=== PATIENT | male | born 1955 | race Caucasian/White ===

== ENCOUNTER → 2023-06-23 09:22 | Outpatient (REF) | payer MEDICARE, OTHER, SELFPAY ==
[2023-06-23 12:55] LABS: Microalbumin, Random Urine <0.6 mg/dl (0.6-1.7)
[2023-06-23 13:05] LABS: ALT (SGPT) 23 U/L (0-50); AST (SGOT) 23 U/L (17-59); Albumin 4.2 g/dl (3.5-5.0); Alkaline Phosphatase 69 U/L (38-126); Blood Urea Nitrogen 17 mg/dl (9-20); Calcium 9.3 mg/dl (8.4-10.2); Carbon Dioxide 27 mmol/L (22-30); Chloride 103 mmol/L (98-107); Glucose 165 mg/dl (70-99); HDL Cholesterol 44 mg/dl; LDL Cholesterol, Calculated 69 mg/dl; Potassium 4.5 mmol/L (3.5-5.1); Sodium 137 mmol/L (135-145); Total Bilirubin 0.6 mg/dl (0.2-1.3); Total Cholesterol 146 mg/dl (50-199); Total Protein 6.9 g/dl (6.3-8.2); Triglyceride 165 mg/dl (10-149); Very Low Density Lipoprotein 33 mg/dl (0-30); eGFR > 60.00
== END ==
LOC: HWLAB 09:22
PROVIDERS: ATTENDING PHYSICIAN Internal Medicine Hematology & Oncology; FAMILY PHYSICIAN Internal Medicine
DX: C15.5 Malignant neoplasm of lower third of esophagus (principal); C79.31 Secondary malignant neoplasm of brain; E11.9 Type 2 diabetes mellitus without complications; E78.5 Hyperlipidemia, unspecified
CPT/HCPCS: 36415; 80053; 80061; 82043; 82570; 83036

== ENCOUNTER → 2023-08-12 11:04 | Outpatient (REF) | payer MEDICARE, OTHER, SELFPAY | LOC: DHCBS HW 11:04 | PROVIDERS: ATTENDING PHYSICIAN Internal Medicine Cardiovascular Disease; FAMILY PHYSICIAN Internal Medicine | DX: R06.09 Other forms of dyspnea (principal); I44.7 Left bundle-branch block, unspecified; I25.10 Atherosclerotic heart disease of native coronary artery without angina pectoris | CPT/HCPCS: 93306 ==

== ENCOUNTER → 2023-08-19 14:23 | Outpatient (REF) | payer MEDICARE, OTHER, SELFPAY ==
--- NOTE | 2023-08-19 15:14 | CARDSERVLU ---
Echocardiogram with Lumason completed after protocol screening completed. Allergies verified.
Patent IV site: _Rt AC_
IV site flushed with 0.9% NaCl pre and post administration.
Diluted bolus method utilized to enhance visualization of ventricular randle.
Total volume given: __3.0__ mL
Patient tolerated all procedures well without complications.
#22 chip placed Left AC. Lumason given. INT removed. dsg applied and pressure held. No bleeding noted.
== END ==
LOC: RCS 14:23
PROVIDERS: ATTENDING PHYSICIAN Internal Medicine Cardiovascular Disease; FAMILY PHYSICIAN Internal Medicine
DX: I10 Essential (primary) hypertension (principal); R00.0 Tachycardia, unspecified; R93.1 Abnormal findings on diagnostic imaging of heart and coronary circulation
CPT/HCPCS: 93308; Q9950

== ENCOUNTER → 2023-08-29 07:26 | Outpatient (REF) | payer MEDICARE, OTHER, SELFPAY | LOC: DHCBC/DCA 07:26 | PROVIDERS: ATTENDING PHYSICIAN Internal Medicine Cardiovascular Disease; FAMILY PHYSICIAN Internal Medicine | DX: R06.09 Other forms of dyspnea (principal); I44.7 Left bundle-branch block, unspecified; I25.10 Atherosclerotic heart disease of native coronary artery without angina pectoris | CPT/HCPCS: 78452; 93017; A9500; J2785 ==

== ENCOUNTER → 2023-09-08 11:45 | Outpatient (REF) | payer MEDICARE, OTHER, SELFPAY ==
[2023-09-09 08:59] LABS: Glycohemoglobin (HgbA1c) 7.5 % (4.0-5.6)
== END ==
LOC: HWLAB 11:45
PROVIDERS: ATTENDING PHYSICIAN Internal Medicine
DX: E11.65 Type 2 diabetes mellitus with hyperglycemia (principal)
CPT/HCPCS: 36415; 83036

== ENCOUNTER → 2023-11-22 10:43 | Outpatient (REF) | payer MEDICARE, OTHER, SELFPAY | LOC: HWLAB 10:43 | PROVIDERS: ATTENDING PHYSICIAN Neurological Surgery; FAMILY PHYSICIAN Internal Medicine | DX: C79.31 Secondary malignant neoplasm of brain (principal) | CPT/HCPCS: 36415; 82565 ==

== ENCOUNTER → 2024-01-17 09:58 | Outpatient (REF) | payer MEDICARE, OTHER, SELFPAY | LOC: RAD 09:58 | PROVIDERS: ATTENDING PHYSICIAN Internal Medicine Hematology & Oncology; FAMILY PHYSICIAN Internal Medicine | DX: C15.5 Malignant neoplasm of lower third of esophagus (principal); C79.31 Secondary malignant neoplasm of brain | CPT/HCPCS: 71260; 74177; Q9967 ==

== ENCOUNTER → 2024-04-04 09:44 | Outpatient (REF) | payer MEDICARE, OTHER, SELFPAY ==
[2024-04-04 11:31] LABS: % Basophils 1.1 % (0-2); % Eosinophils 2.3 % (0-6); % Immature Granulocytes 0.8 % (0-0.5); % Lymphocytes 22.1 % (20.5-51.1); % Monocytes 5.7 % (1.7-9.3); Absolute Basophils 0.1 10^3/uL (0-0.2); Absolute Eosinophils 0.2 10^3/uL (0-0.7); Absolute Immature Granulocytes 0.1 10^3/uL (0-0.05); Absolute Lymphocytes 1.5 10^3/uL (1.2-3.4); Absolute Monocytes 0.4 10^3/uL (0.1-0.6); Absolute Neutrophils 4.5 10^3/uL (1.4-6.5); Hemoglobin 13.8 g/dL (13.0-18.0); Mean Corp Hgb Conc. 30.7 g/dL (33.0-37.0); Mean Corpuscular Hgb 25.7 pg (27.0-31.0); Mean Platelet Volume 9.6 fL (7.4-10.4); Nucleated Red Blood Cells % 0 % (-); Platelet Count 270 10^3/uL (130-400); Red Blood Cell Count 5.36 10^6/uL (4.70-6.10); Red Cell Dist. Width 15.4 % (11.5-14.5); White Blood Cell Count 6.6 10^3/uL (4.8-10.8)
[2024-04-04 13:13] LABS: ALT (SGPT) 18 U/L (0-50); AST (SGOT) 17 U/L (17-59); Albumin 4.5 g/dl (3.5-5.0); Alkaline Phosphatase 45 U/L (38-126); Blood Urea Nitrogen 18 mg/dl (9-20); Calcium 9.4 mg/dl (8.4-10.2); Carbon Dioxide 27 mmol/L (22-30); Chloride 99 mmol/L (98-107); Glucose 119 mg/dl (70-99); HDL Cholesterol 41 mg/dl; LDL Cholesterol, Calculated 61 mg/dl; Potassium 4.8 mmol/L (3.5-5.1); Sodium 141 mmol/L (135-145); Total Bilirubin 0.5 mg/dl (0.2-1.3); Total Cholesterol 134 mg/dl (50-199); Triglyceride 163 mg/dl (10-149); Very Low Density Lipoprotein 32 mg/dl (0-30); eGFR > 60.00
[2024-04-04 13:25] LABS: Microalbumin, Random Urine 0.8 mg/dl (0.6-1.7); Microalbumin/creatinine Ratio 6.3 mg/g
[2024-04-04 13:40] LABS: CEA 1.18 ng/ml
== END ==
LOC: HWLAB 09:44
PROVIDERS: ATTENDING PHYSICIAN Internal Medicine Hematology & Oncology; FAMILY PHYSICIAN Internal Medicine
DX: C15.5 Malignant neoplasm of lower third of esophagus (principal); C79.31 Secondary malignant neoplasm of brain; E11.9 Type 2 diabetes mellitus without complications; E78.5 Hyperlipidemia, unspecified
CPT/HCPCS: 36415; 80053; 80061; 82043; 82378; 82570; 83036; 85025

== ENCOUNTER 2024-04-18 18:23 | Inpatient (IN) | payer MEDICARE, OTHER, SELFPAY ==
[2024-04-18] VITALS (9 sets, daily range): BP systolic 98–138; BP diastolic 71–87; BMI 30.5; BMI 28.3
--- NOTE | 2024-04-18 13:21 | ED.GENMED ---
History of Present Illness
General
Chief Complaint: Cardiac Symptoms
Source: patient
Exam Limitations: none
Time Seen by Provider: 04/18/24 13:19
History of Present Illness
History of Present Illness:
69-year-old male presents via EMS from family doctor's office with complaints of fatigue and cough and shortness of breath of the past 3 days. He was noticed to be hypoxic and tachycardic at the office and was sent here. Patient denies chest pain.
Denies former smoker treated for hypertension. Fever chills or sweats or recent travel. He denies any leg swelling or calf pain. He is a yht-jzmoygf-ayusrrixw diabetic. No abdominal pain nausea or vomiting. No other complaints
Past History
Past History
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 Tubular adenoma of the colon), GERD, HTN, Hypercholesterolemia, NIDDM and Other (Esophageal cancer metastasis to the brain, Colonic polyposis, neuropathic pain)
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
(Esophagectomy,Gastrostomy tube)
Social History
Tobacco: Non-smoker
Alcohol: None
Drug: None
Personal:
Living: with family
Employment: Retired
Family History
Family History: Other (Reviewed and Noncontributory)
Phy Exam
Physical Exam
Physical Exam:
General: Well-appearing male with increased work of breathing
HEENT: Normocephalic atraumatic neck is supple
Heart: Tachycardic but regular
Lungs: Slightly diminished bilaterally
Abdomen soft nontender nondistended no guarding or rebound
Extremities: No cyanosis or edema
Course
Orders/Labs/Results
Orders:
Orders
04/18/24 13:12
Electrocardiogram (*1) Urgent
Reason for Study: Fatigue / Weakness
EKG- Treatment ONCE
04/18/24 13:19
CT Chest Pe Study Urgent
Comment:
Reason For Exam: hypoxia, tachycardia
Diphenhydramine [Benadryl] 50 mg IV NOW STA
Hydrocortisone Sod Succinate [Solu-Cortef] 200 mg IV NOW STA
04/18/24 13:27
Basic Metabolic Panel Urgent
COVID-19 Antigen Urgent
Source: Nasal Swab
Complete Blood Count/With Diff Urgent
NT-proBNP Urgent
Troponin I Urgent
Influenza A+B Rapid Molecular Urgent
CANDI Source: Nasal Swab
Specimen Description:
04/18/24 16:37
CefTRIAXone [Rocephin] 1,000 mg IV NOW STA
04/18/24 17:00
Azithromycin 500 mg/250 ml [Zithromax Infusion] 500 mg in 250 ml IV Q24H
Abnormal Lab Results
04/18/24
13:27
Hgb 12.8 L g/dL
(13.0-18.0)
MCH 25.5 L pg
(27.0-31.0)
MCHC 30.7 L g/dL
(33.0-37.0)
RDW 15.3 H %
(11.5-14.5)
Abs Immat Gran (auto) 0.1 H 10^3/uL
(0-0.05)
Absolute Neuts (auto) 8.3 H 10^3/uL
(1.4-6.5)
Absolute Lymphs (auto) 1.1 L 10^3/uL
(1.2-3.4)
Absolute Monos (auto) 1.1 H 10^3/uL
(0.1-0.6)
Immature Gran % 0.6 H %
(0-0.5)
Neutrophils % 77.9 H %
(42.2-75.2)
Lymphocytes % 10.5 L %
(20.5-51.1)
Monocytes % 10.0 H %
(1.7-9.3)
BUN 24 H mg/dl
(9-20)
Glucose 139 H mg/dl
(70-99)
04/18/24 13:27
04/18/24 13:27
Vital Signs
Initial and Last Documented VS:
Initial Vital Signs
Temp Pulse Resp BP Pulse Ox
99.4 F 119 16 98/73 92
04/18/24 13:13 04/18/24 13:13 04/18/24 13:13 04/18/24 13:13 04/18/24 13:13
Last Documented Vital Signs
Temp Pulse Resp BP Pulse Ox
99.4 F 100 16 119/78 95
04/18/24 13:13 04/18/24 16:00 04/18/24 16:04 04/18/24 16:00 04/18/24 16:00
MDM/Problems Addressed
Differential Diagnosis Includes:
Shortness of breath fatigue and weakness. Patient is hypoxic here at 87% on room air and tachycardic. EKG shows a left bundle branch block which is not new. Differential could include PE versus pneumonia versus ACS versus viral illness
Nasal cannula oxygen started. Will check labs including troponin BNP. CT of chest ordered. Chart lists iodinated contrast material allergy. Will pretreat with Solu-Cortef and Benadryl.
Review of chart shows prior history of left bundle branch block
*Critical Care Note
Total Time (30-74mins, 75-104mins- exclusive of procedures): Not Applicable
Update Note
Update Note:
CT chest demonstrates a right middle lobe pneumonia but no evidence of pulmonary embolism. Patient is tachycardic here with some hypoxia. He is on nasal oxygen. Will admit patient to hospital for pneumonia. Rocephin and Zithromax ordered
ED Attending Note
-
Portions of this chart may have been created with voice recognition software.� Occasional wrong word or��sound alike� substitutions may have occurred due to the inherent limitations of voice recognition software.
Discharge Plan
Departure
Patient Disposition: Admit
Date of Disposition: 04/18/24
Time of Disposition: 16:43
Admit to: Telemetry
Presentation/result/management discussed w/ accepting MD/DO: Hospitalist
Discharge Problem:
Pneumonia
Prescriptions:
No Action
omeprazole 40 MG capsule,delayed release(DR/EC)
40 mg PO BID
duloxetine 60 MG capsule,delayed release(DR/EC)
60 mg PO HS
amlodipine 5 MG tablet
5 mg PO DAILY
atorvastatin 20 mg Tablet
20 mg PO HS
metformin 500 mg tablet
1,000 mg PO BID
Centrum Men 8 mg iron- 200 mcg-600 mcg Tablet
1 tab PO DAILY
aspirin 81 mg Tablet,Chewable
81 mg PO DAILY Qty: 30 0RF
levetiracetam 500 mg Tablet
1,000 mg PO BID Qty: 120 0RF
clopidogrel 75 mg Tablet
75 mg PO DAILY Qty: 20 0RF
amoxicillin-pot clavulanate 875-125 mg tablet
1 tab PO BID Qty: 14 0RF
azithromycin 250 mg tablet
250 mg PO DAILY 4 Days Qty: 4 0RF
Referrals:
Sachi Moses MD [Family Provider] -
Interventions
Interventions:
*Risk Screen - Suicide Last Done: 04/18/24 13:19
*General Assessment Last Done: 04/18/24 13:18
*Neglect/Abuse Screening Last Done: 04/18/24 13:19
*ED COVID-19 Vaccine History Last Done: 04/18/24 13:18
ED- Pulmonary Assessment Last Done: 04/18/24 13:19
ED- Cardiac Assessment Last Done: 04/18/24 13:19
Discharge Date and Time
Print Language: KYRGYZ
[2024-04-18] MEDS: SOLU-CORTEF 200 MG IV (13:29)
[2024-04-18] MEDS: BENADRYL 50 MG IV (13:29)
[2024-04-18 13:42] LABS: % Basophils 0.5 % (0-2); % Eosinophils 0.5 % (0-6); % Immature Granulocytes 0.6 % (0-0.5); % Lymphocytes 10.5 % (20.5-51.1); % Neutrophils 77.9 % (42.2-75.2); Absolute Basophils 0.1 10^3/uL (0-0.2); Absolute Eosinophils 0.1 10^3/uL (0-0.7); Absolute Immature Granulocytes 0.1 10^3/uL (0-0.05); Absolute Lymphocytes 1.1 10^3/uL (1.2-3.4); Absolute Monocytes 1.1 10^3/uL (0.1-0.6); Absolute Neutrophils 8.3 10^3/uL (1.4-6.5); Hematocrit 41.7 % (39.0-52.0); Hemoglobin 12.8 g/dL (13.0-18.0); Mean Corp Hgb Conc. 30.7 g/dL (33.0-37.0); Mean Corpuscular Hgb 25.5 pg (27.0-31.0); Mean Corpuscular Volume 83.2 fL (80.0-94.0); Nucleated Red Blood Cells % 0 % (-); Platelet Count 270 10^3/uL (130-400); Red Blood Cell Count 5.01 10^6/uL (4.70-6.10); Red Cell Dist. Width 15.3 % (11.5-14.5); White Blood Cell Count 10.7 10^3/uL (4.8-10.8)
[2024-04-18 14:03] LABS: COVID-19 Antigen Negative (Negative)
[2024-04-18 14:05] LABS: Blood Urea Nitrogen 24 mg/dl (9-20); Calcium 9.8 mg/dl (8.4-10.2); Carbon Dioxide 23 mmol/L (22-30); Chloride 101 mmol/L (98-107); Estimated Creatinine Clearance 96 ml/min; Glucose 139 mg/dl (70-99); Sodium 139 mmol/L (135-145); eGFR > 60.00
[2024-04-18 14:12] LABS: NT-proBNP 245 pg/ml; Troponin I < 0.012 ng/ml
[2024-04-18] MEDS: ROCEPHIN 1000 MG IV (16:48)
[2024-04-18] MEDS: ZITHROMAX INFUSION 250 IV (16:49)
--- NOTE | 2024-04-18 17:14 | HPS.HSE ---
Family Physician
-
Family Physician: Sachi Moses
Chief Complaint
-
weakness and cough
History of Present Illness
Mr. Fox Syed is a 69 yo man with hx esophageal cancer with left frontal lobe metastasis status post esophagectomy 2015 and craniotomy 2018, admission for dysarthria 2021 treated for TIA and started on AED, DM, essential HTN, HLD presents to the
ER with fatigue, cough and shortness of breath. Patient was sent from PCP office, noted to be hypoxic and tachycardic.
Patient is slow to respond on my interview but AAO x 3 (had just received Benadryl for contrast allergY). He states symptoms started with fatigue one week ago. He then had increased cough and shortness of breath over past several days. No chest
pain. He is currently diaphoretic, did not check to see if had fever at home. At clinic he was noted to have SBP in 80's per .
He denies nausea/vomiting. He has been eating and drinking OK but states doesn't drink much. No current abdominal pain. No LE swelling. No rash.
Medical History
Past Medical History
Past Medical History: Reports Other
Additional Past Medical History:
Hypertension
DM-II
Esophageal Cancer with L Frontal Lobe Metastasis
Depression
admission for dysarthria 2021 treated for TIA and started on AED
Past Surgical History: Reports Other
Additional Past Surgical History:
G-tube
Esophagectomy 2016
Brain tumor resection 2018
Social History
Tobacco: Former Smoker (Quit 2015. Approx 40 pack years total use.)
Alcohol: None
Drug: None
Personal:
Living: With Family
Employment: Employed
Family History
Family History: Not pertinent
Allergies / Home Medications
Allergies reflects when Allergies were last updated in [employer].
Home Medications with original date entered in [employer]
Allergy/Medication List:
Allergies
Allergy/AdvReac Type Severity Reaction Status Date / Time
Iodinated Contrast Media Allergy Hives Verified 04/21/22 23:20
Home Medications
omeprazole 40 mg capsule,delayed release 40 mg PO BID Gastrointestinal issue 09/24/16
duloxetine 60 mg capsule,delayed release 60 mg PO QPM Depression 09/09/18
amlodipine 5 mg tablet 5 mg PO DAILY Blood pressure 05/16/19
atorvastatin 20 mg tablet 20 mg PO QPM High cholesterol 12/16/21
metformin 500 mg tablet 1,000 mg PO BID Diabetes 12/16/21
multivit,Ca,min-iron 8 mg-folic acid 200 mcg-lycopene 600 mcg tablet (Centrum Men) 1 tab PO DAILY Supplement 12/16/21
aspirin 81 mg chewable tablet 81 mg PO DAILY #30 tabs 12/17/21
empagliflozin 25 mg tablet (Jardiance) 25 mg PO DAILY 04/18/24
levetiracetam 500 mg tablet 750 mg PO BID 04/18/24
metoprolol succinate 25 mg tablet,extended release 24 hr 25 mg PO QPM 04/18/24
Review of Systems
-
History Source: Patient
A 12 point ROS was completed and negative except as noted: Yes
Physical Exam
Vital Signs
Vital Signs
Temp Pulse Resp BP Pulse Ox
99.4 F 100 16 127/87 97
04/18/24 13:13 04/18/24 17:00 04/18/24 17:04 04/18/24 17:00 04/18/24 17:00
Physical Exam
General: Other (appears diaphoretic and slow to respond to questions but awake/alert )
HEENT: PERRLA
Respiratory: Rhonchi; No Wheezes
Cardiac: S1/S2 and Regular Rhythm
GI: Soft and Non Tender
Musculoskeletal: No Edema
Skin: Warm and Dry; No Rash
Neuro: AO x 3
Psych: Calm
Laboratory Results
-
04/18/24 13:27
04/18/24 13:27
Laboratory Results
Total Bilirubin Cancelled 04/18/24 13:27
AST Cancelled 04/18/24 13:27
ALT Cancelled 04/18/24 13:27
Alkaline Phosphatase Cancelled 04/18/24 13:27
Troponin I < 0.012 ng/ml 04/18/24 13:27
Data Reviewed
-
Diagnostic Radiology: Report Reviewed by me
Lab Data: Labs Reviewed by me
Impression/Plan
-
Mr. Fox Syed is a 69 yo man with hx esophageal cancer with left frontal lobe metastasis status post esophagectomy and craniotomy 2018, admission for dysarthria 2021 treated for TIA and started on AED, DM, essential HTN, HLD presents to the ER
with fatigue, cough and shortness of breath. Patient was sent from PCP office, noted to be hypoxic and tachycardic.
Triage VS: T 99.4, P 119, RR 16, BP 98/73, SpO2 92%
LABS: WBC 10.7, Hg 12.8, PLT 270, Na 139, Cl 101, BUN 24, Cr 0.9, Glucose 139, Trop < 0.012, BNP 245
covid negative, Influenza negative
Chest CT:
IMPRESSION: Examination is negative for pulmonary embolism.
Right upper lobe pneumonia, new since prior examination of January 17, 2024.
See above narrative for additional findings.
There is a slightly enlarged paratracheal lymph node seen on image 30 of series 401, short axis diameter of 11 mm, slightly larger than on previous examination. This is nonspecific and could be reactive or neoplastic. There are also slightly
enlarged lymph nodes adjacent to the trachea and grace, slightly larger than previous examination but still nonspecific.
MAR: IV Ceftriaxone, Azithromycin
Community Acquired Pneumonia
Hypoxic Respiratory Insufficiency
-admit to telemetry
-O2 support as needed
-continue IV Ceftriaxone/Azithromycin
-1L bolus now and running IVF
Hx Esophageal cancer with left frontal lobe metastasis
status post esophagectomy and craniotomy 2019, s/p radiation
Essential HTN
-current SBP 120's, was 80's in office per
-hold amlodipine for now and monitor BP
-LACE PINNER metoprolol with hold parameters
DM II
-hold LACE PINNER Metformin, Jardiance
-ISS
Hx TIA
-LACE PINNER aspirin, statin
Depression
-LACE PINNER Duloxetine
DVT PPx Lovenox subQ
FULL CODE
[2024-04-18] MEDS: NSS 1000 IV ×2 (17:44→21:01)
[2024-04-18 18:09] LABS: ALT (SGPT) 33 U/L (0-50); AST (SGOT) 43 U/L (17-59); Albumin 3.8 g/dl (3.5-5.0); Alkaline Phosphatase 52 U/L (38-126); Direct Bilirubin 0.3 mg/dl (0.0-0.4); Magnesium 2.1 mg/dl (1.6-2.3); Potassium 4.6 mmol/L (3.5-5.1); Total Bilirubin 0.6 mg/dl (0.2-1.3); Total Protein 6.5 g/dl (6.3-8.2)
[2024-04-18 20:09] LABS: Glucose - Point of Care 130 mg/dl (70-99)
--- NOTE | 2024-04-18 20:30 | TRANSFER ---
pt arrived from ED via stretcher accompanied by ED staff. pt was a pullover from stretcher to bed. pt AAOx3. diaphoretic upon arrival, but VSS. blood sugar on arrival 130. satting at 96% on 4L. bed alarm placed. pt oriented to room, call drew within
reach. POC ongoing, will continue to monitor.
[2024-04-18] MEDS: KEPPRA 750 MG PO (20:57)
[2024-04-18] MEDS: NOVOLOG FLEXPEN-LOW RESISTANCE SC (20:57)
[2024-04-18] MEDS: CYMBALTA DELAYED RELEASE 60 MG PO (20:59)
[2024-04-18] MEDS: MUCINEX 600 MG PO (20:59)
[2024-04-18] MEDS: TOPROL XL 25 MG PO (20:59)
[2024-04-18] MEDS: PROTONIX 40 MG PO (20:59)
[2024-04-18] MEDS: LIPITOR 20 MG PO (21:00)
[2024-04-18] MEDS: LOVENOX 40 MG SC (21:00)
[2024-04-19] VITALS (8 sets, daily range): BP systolic 109–166; BP diastolic 64–75; PULSE 104; O2SAT 90
--- NOTE | 2024-04-19 06:36 | DOWNTIME ---
There was a [employer] Downtime on 04/19/2024 from 0200 to 04/19/2024 at 0325 . Downtime documentation of patient's care, including medication administrations, has been reconciled in the electronic record per guidelines. Refer to the
patient's paper chart under the miscellaneous tab to see printed paper medication records and downtime forms.
[2024-04-19 07:27] LABS: % Basophils 0.5 % (0-2); % Eosinophils 0.4 % (0-6); % Immature Granulocytes 0.8 % (0-0.5); % Lymphocytes 17.8 % (20.5-51.1); % Monocytes 6.8 % (1.7-9.3); % Neutrophils 73.7 % (42.2-75.2); Absolute Immature Granulocytes 0.1 10^3/uL (0-0.05); Absolute Lymphocytes 1.4 10^3/uL (1.2-3.4); Absolute Monocytes 0.5 10^3/uL (0.1-0.6); Absolute Neutrophils 5.9 10^3/uL (1.4-6.5); Hematocrit 42.2 % (39.0-52.0); Hemoglobin 12.5 g/dL (13.0-18.0); Mean Corp Hgb Conc. 29.6 g/dL (33.0-37.0); Mean Corpuscular Hgb 25.2 pg (27.0-31.0); Mean Corpuscular Volume 84.9 fL (80.0-94.0); Mean Platelet Volume 9.8 fL (7.4-10.4); Nucleated Red Blood Cells % 0 % (-); Platelet Count 270 10^3/uL (130-400); Red Blood Cell Count 4.97 10^6/uL (4.70-6.10); Red Cell Dist. Width 15.2 % (11.5-14.5)
[2024-04-19 07:40] LABS: Blood Urea Nitrogen 25 mg/dl (9-20); Calcium 9.3 mg/dl (8.4-10.2); Carbon Dioxide 26 mmol/L (22-30); Chloride 104 mmol/L (98-107); Estimated Creatinine Clearance 101 ml/min; Glucose 90 mg/dl (70-99); Magnesium 2.2 mg/dl (1.6-2.3); Sodium 142 mmol/L (135-145); eGFR > 60.00
[2024-04-19 08:32] LABS: Glucose - Point of Care 95 mg/dl (70-99)
[2024-04-19] MEDS: NOVOLOG FLEXPEN-LOW RESISTANCE SC (08:45)
[2024-04-19] MEDS: MUCINEX 600 MG PO (08:47)
[2024-04-19] MEDS: KEPPRA 750 MG PO ×2 (08:47→21:21)
[2024-04-19] MEDS: PROTONIX 40 MG PO ×2 (08:47→21:22)
[2024-04-19] MEDS: LOW STRENGTH ASPIRIN 81 MG PO (08:47)
[2024-04-19] MEDS: FLUSH (NSS) 1 FLUSH IV (08:48)
--- NOTE | 2024-04-19 11:15 | W.PN.HOSP.TC ---
Today's Communication/Plan
-
see outlined plan
wean O2
Assessment / Plan
Assessment / Plan
Assessment:
Community Acquired Pneumonia
Hypoxic Respiratory Insufficiency on 4L NC on admission
- s/p IVF
- continue IV Rocephin, Azithro, day 2
- wean O2 as able
- mucolytics, IS, Acapella
Hx Esophageal cancer with left frontal lobe metastasis
status post esophagectomy and craniotomy 2019, s/p radiation
- on Keppra for AED for prophylaxis
Essential HTN
-current SBP 120's, was 80's in office per
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
DM II
-hold [employer] Metformin
-resume Jardiance
-ISS
Hx TIA
-[employer] aspirin, statin
Depression
-[employer] Duloxetine
DVT PPx Lovenox subQ
FULL CODE
Anticipated Discharge: Within 24 hours
Subjective/Interval History
-
Date of Service: April 19, 2024
weaned to 2L from 4L
brown sputum production
denies SOB or chest pain
no fevers
Objective Data
-
Labs:
Laboratory Results
04/19/24
06:26
WBC 8.0
Hgb 12.5 L
Hct 42.2
Plt Count 270
Sodium 142
Potassium 5.0
Chloride 104
Carbon Dioxide 26
BUN 25 H
Creatinine 0.8
Glucose 90
Calcium 9.3
Vital Signs:
Vital Signs
Temp Pulse Resp BP Pulse Ox
97.6 F 82 20 166/75 98
04/19/24 08:07 04/19/24 08:07 04/19/24 08:07 04/19/24 08:07 04/19/24 08:07
I&O
04/18/24 04/19/24 04/20/24
06:59 06:59 06:59
Intake Total 1040 / 1040
Output Total 350 / 350
Balance 690 / 690
Physical Exam
-
General: No Apparent Distress
HEENT: Normocephalic and Atraumatic
Respiratory: Rhonchi (RUL) and Decreased Breath Sounds
Cardiac: Regular Rhythm and S1/S2
GI: Soft
Genito-urinary: No Costovertebral Tender
Neuro: AO x 3
Psych: Calm
Data Reviewed
-
Total Time Spent with Patient (in minutes): 44
Labs: Labs Reviewed by me
[2024-04-19 12:24] LABS: Glucose - Point of Care 161 mg/dl (70-99)
[2024-04-19] MEDS: NORVASC 5 MG PO (12:50)
[2024-04-19] MEDS: FARXIGA 10 MG PO (12:50)
[2024-04-19] MEDS: NOVOLOG FLEXPEN-LOW RESISTANCE 1 UNITS SC (12:51)
[2024-04-19 16:49] LABS: Glucose - Point of Care 348 mg/dl (70-99)
[2024-04-19] MEDS: ZITHROMAX 500 MG PO (17:11)
[2024-04-19] MEDS: STERILE WATER FOR INJECTION 10 ML IV (17:11)
[2024-04-19] MEDS: ROCEPHIN 1000 MG IV (17:11)
[2024-04-19] MEDS: FLUSH (NSS) 2 FLUSH IV (17:12)
[2024-04-19] MEDS: NOVOLOG FLEXPEN-LOW RESISTANCE 4 UNITS SC (17:13)
[2024-04-19] MEDS: LIPITOR 20 MG PO (17:23)
[2024-04-19] MEDS: CYMBALTA DELAYED RELEASE 60 MG PO (17:23)
[2024-04-19] MEDS: LOVENOX 40 MG SC (17:24)
[2024-04-19] MEDS: TOPROL XL 25 MG PO (17:24)
[2024-04-19 21:10] LABS: Glucose - Point of Care 192 mg/dl (70-99)
[2024-04-19] MEDS: MUCINEX 1200 MG PO (21:23)
[2024-04-20 03:45] VITALS: BP 110/75
[2024-04-20 06:13] LABS: Glucose - Point of Care 211 mg/dl (70-99)
[2024-04-20] MEDS: ZOFRAN 4 MG IV (06:24)
[2024-04-20 07:20] LABS: Glucose - Point of Care 163 mg/dl (70-99)
[2024-04-20 07:35] VITALS: BP 128/75
[2024-04-20] MEDS: FLUSH (NSS) 1 FLUSH IV (08:33)
[2024-04-20] MEDS: NOVOLOG FLEXPEN-LOW RESISTANCE 1 UNITS SC (08:33)
[2024-04-20] MEDS: LOW STRENGTH ASPIRIN 81 MG PO (08:34)
[2024-04-20] MEDS: KEPPRA 750 MG PO (08:34)
[2024-04-20] MEDS: MUCINEX 1200 MG PO (08:34)
[2024-04-20] MEDS: PROTONIX 40 MG PO (08:34)
[2024-04-20] MEDS: FARXIGA 10 MG PO (08:34)
[2024-04-20] MEDS: NORVASC 5 MG PO (08:34)
[2024-04-20 08:55] LABS: Hematocrit 37.1 % (39.0-52.0); Hemoglobin 11.4 g/dL (13.0-18.0); Mean Corp Hgb Conc. 30.7 g/dL (33.0-37.0); Mean Corpuscular Hgb 25.6 pg (27.0-31.0); Mean Corpuscular Volume 83.2 fL (80.0-94.0); Mean Platelet Volume 9.7 fL (7.4-10.4); Platelet Count 257 10^3/uL (130-400); Red Blood Cell Count 4.46 10^6/uL (4.70-6.10); Red Cell Dist. Width 15.1 % (11.5-14.5); White Blood Cell Count 6.4 10^3/uL (4.8-10.8)
[2024-04-20 09:22] LABS: Blood Urea Nitrogen 26 mg/dl (9-20); Calcium 8.7 mg/dl (8.4-10.2); Carbon Dioxide 27 mmol/L (22-30); Chloride 100 mmol/L (98-107); Estimated Creatinine Clearance 101 ml/min; Glucose 150 mg/dl (70-99); Potassium 4.1 mmol/L (3.5-5.1); Sodium 137 mmol/L (135-145); eGFR > 60.00
[2024-04-20 11:30] VITALS: BP 122/74
[2024-04-20 11:36] LABS: Glucose - Point of Care 128 mg/dl (70-99)
--- NOTE | 2024-04-20 12:17 | W.PN.HOSP.TC ---
Today's Communication/Plan
-
dc home
Assessment / Plan
Assessment / Plan
Assessment:
Community Acquired Pneumonia
Hypoxic Respiratory Insufficiency on 4L NC on admission
- s/p IVF
- continue IV Rocephin, Azithro, day 3/7- transition to PO at discharge
- now on RA
- mucolytics, IS, Acapella
Hx Esophageal cancer with left frontal lobe metastasis
status post esophagectomy and craniotomy 2019, s/p radiation
- on Keppra for AED for prophylaxis
Essential HTN
-current SBP 120's, was 80's in office per
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
DM II
-hold COP WINDER Metformin
-resume Jardiance
-ISS
Hx TIA
-COP WINDER aspirin, statin
Depression
-COP WINDER Duloxetine
DVT PPx Lovenox subQ
FULL CODE
More than 30 minutes spent in discharge including
Final examination of the patient
Summarizing hospital stay
Instructions for continuing care to all relevant caregivers
Preparation of discharge records, prescriptions, and referral forms
Total time spent (in minutes):41
Anticipated Discharge: Today
Subjective/Interval History
-
Date of Service: April 20, 2024
on RA, feels well
Objective Data
-
Labs:
Laboratory Results
04/20/24
07:56
WBC 6.4
Hgb 11.4 L
Hct 37.1 L
Plt Count 257
Sodium 137
Potassium 4.1
Chloride 100
Carbon Dioxide 27
BUN 26 H
Creatinine 0.8
Glucose 150 H
Calcium 8.7
Vital Signs:
Vital Signs
Temp Pulse Resp BP Pulse Ox
98.2 F 88 18 122/74 93
04/20/24 11:30 04/20/24 11:30 04/20/24 11:30 04/20/24 11:30 04/20/24 11:30
I&O
04/19/24 04/20/24 04/21/24
06:59 06:59 06:59
Intake Total 1040 / 1040 240 / 240
Output Total 350 / 350 300 / 300
Balance 690 / 690 -60 / -60
Physical Exam
-
General: No Apparent Distress
HEENT: Normocephalic and Atraumatic
Respiratory: Negative Wheezes
Cardiac: Regular Rhythm and S1/S2
GI: Soft and Nontender
Musculoskeletal: No Edema
Neuro: AO x 3
Psych: Calm
Data Reviewed
-
Total Time Spent with Patient (in minutes): 41
Labs: Labs Reviewed by me
--- NOTE | 2024-04-20 12:24 | W.DS.TRANS ---
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
-
Discharge Instructions:
Discharge Diagnosis/Procedures community acquired pneumonia, hypoxia
Diet Diabetic, Carb Controlled
Activity As tolerated
Instructions:
Stand-Alone Forms:
Changes to Home Medications: No
Discharge Medications:
DC Medications w/original date entered in [facility]
omeprazole 40 mg capsule,delayed release 40 mg PO BID Gastrointestinal issue 09/24/16
duloxetine 60 mg capsule,delayed release 60 mg PO QPM Depression 09/09/18
amlodipine 5 mg tablet 5 mg PO DAILY Blood pressure 05/16/19
atorvastatin 20 mg tablet 20 mg PO QPM High cholesterol 12/16/21
metformin 500 mg tablet 1,000 mg PO BID Diabetes 12/16/21
multivit,Ca,min-iron 8 mg-folic acid 200 mcg-lycopene 600 mcg tablet (Centrum Men) 1 tab PO DAILY Supplement 12/16/21
aspirin 81 mg chewable tablet 81 mg PO DAILY #30 tabs 12/17/21
empagliflozin 25 mg tablet (Jardiance) 25 mg PO DAILY 04/18/24
levetiracetam 500 mg tablet 750 mg PO BID 04/18/24
metoprolol succinate 25 mg tablet,extended release 24 hr 25 mg PO QPM 04/18/24
azithromycin 250 mg tablet 250 mg PO DAILY@1600 #4 tabs 04/20/24
cefdinir 300 mg capsule 300 mg PO BID #8 caps 04/20/24
guaifenesin 600 mg tablet, extended release 12 hr 1,200 mg (2 x 600 mg) PO Q12 #20 tabs 04/20/24
Home Medication Changes
Pending Results: No
Total time spent discharging patient (in min): 41
--- NOTE | 2024-04-20 12:42 | CM ---
CM met with Fox and his at bedside to complete IA. Fox and his live in a 2 story home with 4 entry steps. They are both retired. Fox is (I) amb and adls. Denies need for home care or other services.
IMM provided, signed and placed on chart; copy provided for patient and his to review.
Plan: Discharge to home with no needs.
[2024-04-20] MEDS: NOVOLOG FLEXPEN-LOW RESISTANCE SC (13:04)
== END 2024-04-20 14:38 | disposition home or self-care (01) | DRG 195 ==
LOC: 4 EAST ACU 18:23
PROVIDERS: Physician Assistant; ADMITTING PHYSICIAN Student in an Organized Health Care Education/Training Program; ATTENDING PHYSICIAN Internal Medicine; EMERGENCY PHYSICIAN Student in an Organized Health Care Education/Training Program; FAMILY PHYSICIAN Internal Medicine
DX: J18.9 Pneumonia, unspecified organism (principal); E11.9 Type 2 diabetes mellitus without complications; E78.00 Pure hypercholesterolemia, unspecified; F32.A Depression, unspecified; I10 Essential (primary) hypertension; K21.9 Gastro-esophageal reflux disease without esophagitis; R09.02 Hypoxemia; R06.89 Other abnormalities of breathing; Z79.84 Long term (current) use of oral hypoglycemic drugs; Z85.01 Personal history of malignant neoplasm of esophagus; Z86.73 Personal history of transient ischemic attack (TIA), and cerebral infarction without residual deficits; Z87.891 Personal history of nicotine dependence; Z91.041 Radiographic dye allergy status; Z92.3 Personal history of irradiation; Z85.841 Personal history of malignant neoplasm of brain; Z79.82 Long term (current) use of aspirin; Z79.899 Other long term (current) drug therapy; Z20.822 Contact with and (suspected) exposure to COVID-19
CPT/HCPCS: 71275; 80048; 80076; 82962; 83735; 83880; 84132; 84484; 85025; 85027; 87502; 87811; 93005; 96374; 96375; 97162; 97166; 99285; Q9967

== ENCOUNTER → 2024-04-27 08:08 | Outpatient (REF) | payer MEDICARE, OTHER, SELFPAY ==
--- NOTE | 2024-04-27 09:31 | CARDSERVLU ---
Echocardiogram with Lumason completed after protocol screening completed. Allergies verified.
Patent IV site: Rt AC___
IV site flushed with 0.9% NaCl pre and post administration.
Diluted bolus method utilized to enhance visualization of ventricular randle.
Total volume given: ___3.0_ mL
Patient tolerated all procedures well without complications.
#22 chip placed left AC. Lumason given. INT d/c'd. pressure held. No bleeding noted.
== END ==
LOC: RCS 08:08
PROVIDERS: ATTENDING PHYSICIAN Internal Medicine Cardiovascular Disease; FAMILY PHYSICIAN Internal Medicine
DX: I44.7 Left bundle-branch block, unspecified (principal); I25.84 Coronary atherosclerosis due to calcified coronary lesion
CPT/HCPCS: 93306; Q9950

== ENCOUNTER 2024-05-22 06:16 | Day surgery (SDC) | payer MEDICARE, OTHER, SELFPAY ==
[2024-05-22 08:11] LABS: Glucose - Point of Care 142 mg/dl (70-99)
== END 2024-05-22 09:36 | disposition home or self-care (01) ==
LOC: GI 06:16
PROVIDERS: ATTENDING PHYSICIAN Internal Medicine Gastroenterology
DX: Z12.11 Encounter for screening for malignant neoplasm of colon (principal); K21.00 Gastro-esophageal reflux disease with esophagitis, without bleeding; D12.2 Benign neoplasm of ascending colon; D12.4 Benign neoplasm of descending colon; K64.8 Other hemorrhoids; D49.0 Neoplasm of unspecified behavior of digestive system; Z98.890 Other specified postprocedural states; Z86.0100 Personal history of colon polyps, unspecified
CPT/HCPCS: 45385; 45380; 43239; 88305; 82962

== ENCOUNTER 2024-06-21 15:51 | Emergency (ER) | payer MEDICARE, OTHER, SELFPAY ==
[2024-06-21 15:52] VITALS: BP 128/89
--- NOTE | 2024-06-21 16:30 | CON.NEURO ---
Neuro Assessment/Plan
Assessment
Head CT imgs reviewed, left posterior lateral frontal lobe hypodensity corresponding to known prior neoplasm and surgery
Simple partial seizure, breakthrough in the setting of missing Keppra last night
you cannot have the same TIA 4 times over the course of several years.
right facial droop and conductive aphasia consistent with known prior neoplasm and surgery
Plan
would continue Keppra 750 BID
he does not need to come to the ED for each occurrence of this event
Consultation
Order
Date of Consultation: 06/21/24
Requesting Provider:
Reason for Consult:stroke alert
Subjective/Objective
Subjective Data
Date of Service: June 21, 2024
He is a 69 year old man with distant history of esophageal cancer with brain mets, s/p left temporal craniotomy and resection, presenting with episode of right facial droop and aphasia. This is his 4th time with the same event. Initially felt to be
TIA, however on the most recent episode 04/[address] Diaz, believed to be simple partial seizure, patient started on Keppra. He is supposed to be on Keppra 750 BID, missed a dose last night.
Objective Data
Vital Signs
Temp Pulse Resp BP Pulse Ox
36.4 C 133 18 128/89 94
06/21/24 15:52 06/21/24 15:52 06/21/24 15:52 06/21/24 15:52 06/21/24 15:52
Patient Allergies
Iodinated Contrast Media Allergy (Verified 06/21/24 15:58)
Hives
Physical Exam
-
AAOx3, speech clear, language intact to naming and comprehension; impaired repetition
right NL flattening
VFF, EOMI
full strength b/l UE/LE, nl bulk/tone
Medications
-
Home Medications
�Medication �Instructions �Recorded
omeprazole 40 mg capsule,delayed 40 mg PO BID Gastrointestinal issue 09/24/16
release
duloxetine 60 mg capsule,delayed 60 mg PO QPM Depression 09/09/18
release
amlodipine 5 mg tablet 5 mg PO DAILY Blood pressure 05/16/19
atorvastatin 20 mg tablet 20 mg PO QPM High cholesterol 12/16/21
metformin 500 mg tablet 1,000 mg PO BID Diabetes 12/16/21
multivit,Ca,min-iron 8 mg-folic 1 tab PO DAILY Supplement 12/16/21
acid 200 mcg-lycopene 600 mcg
tablet (Centrum Men)
aspirin 81 mg chewable tablet 81 mg PO DAILY #30 tabs 12/17/21
empagliflozin 25 mg tablet 25 mg PO DAILY 04/18/24
(Jardiance)
levetiracetam 500 mg tablet 750 mg PO BID 04/18/24
metoprolol succinate 25 mg 25 mg PO QPM 04/18/24
tablet,extended release 24 hr
[2024-06-21 16:31] LABS: Glucose - Point of Care 94 mg/dl (70-99)
[2024-06-21 16:36] VITALS: BP 126/86
[2024-06-21] MEDS: KEPPRA 1000 MG IV (16:36)
[2024-06-21 16:45] VITALS: BP 126/81
--- NOTE | 2024-06-21 16:57 | ED.CVA ---
History of Present Illness
General
Chief Complaint: CVA/TIA Symptoms
Source: patient, spouse and physician
Exam Limitations: none
Time Seen by Provider: 06/21/24 16:19
Nursing documentation reviewed up to this point in time: agreed with
Onset of Stroke Symptoms
Onset of symptoms known: Yes
Date of onset of symptoms: 06/21/24
Time of onset of symptoms: 15:40
History of Present Illness
History of Present Illness:
69-year-old male brain tumor status postsurgery status post seizure on Keppra 750 twice daily presents with an episode of slurred speech right facial weakness, Stroke alert was called by nursing to evaluate the patient he had already been seen by
neurology who believes that the patient had a seizure Patient symptoms had improved he has had exact similar episode 3 times previously he does admit to missing his Keppra dose yesterday scheduled to see his neurologist and neurosurgeon in the
coming weeks
Past History
Past History
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 Tubular adenoma of the colon), GERD, HTN, Hypercholesterolemia, NIDDM and Other (Esophageal cancer metastasis to the brain, Colonic polyposis, neuropathic pain)
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
(Esophagectomy,Gastrostomy tube)
Social History
Tobacco: Non-smoker
Alcohol: None
Drug: None
Personal:
Living: with family
Employment: Retired
Family History
Family History: Other (Reviewed and Noncontributory)
Phy Exam
Physical Exam
Physical Exam:
Physical Exam
General: no apparent distress, not acutely ill
Neck: no jaundice
Heart: s1/s2 regular rate and rhythm, no murmur. equal radial pulses.
Lungs: no acute respiratory distress. clear bilaterally
Neuro: alert and oriented. Slight aphasia
Skin: no rash
Psychiatric: well kept. interactive and cooperative
Extremities: no edema.
Course
Orders/Labs/Results
Orders:
Orders
06/21/24 16:01
CT HEAD STROKE ALERT W/o Cont Stat
Comment:
Reason For Exam: stroke alert
06/21/24 16:28
Electrocardiogram (*1) Urgent
Reason for Study: Tachycardia
06/21/24 16:29
EKG- Treatment ONCE
06/21/24 16:31
Complete Blood Count/With Diff Urgent
Comprehensive Metabolic Panel Urgent
Levetiracetam Injectable [Keppra] 1,000 mg IV NOW STA
Abnormal Lab Results
06/21/24
16:31
MCH 25.0 L pg
(27.0-31.0)
MCHC 31.2 L g/dL
(33.0-37.0)
RDW 15.6 H %
(11.5-14.5)
Carbon Dioxide 18 L mmol/L
(22-30)
BUN 29 H mg/dl
(9-20)
Glucose 136 H mg/dl
(70-99)
06/21/24 16:31
06/21/24 16:31
Vital Signs
Initial and Last Documented VS:
Initial Vital Signs
Temp Pulse Resp BP Pulse Ox
97.6 F 133 18 128/89 94
06/21/24 15:52 06/21/24 15:52 06/21/24 15:52 06/21/24 15:52 06/21/24 15:52
Last Documented Vital Signs
Temp Pulse Resp BP Pulse Ox
97.6 F 106 27 110/83 95
06/21/24 15:52 06/21/24 17:08 06/21/24 17:08 06/21/24 17:06/21/24 17:08
MDM/Problems Addressed
Differential Diagnosis Includes:
Seizure stroke seizure with Rashaad's paralysis toxic metabolic tumor progression
MDM/Problems Addressed:
Facial weakness slurred speech
Chronic conditions affecting care: DM and Neurological disorder
Acute Exacerbation and/or Progression of Chronic Illness: DM and Neurological disorder
*Radiology
Radiology exam reviewed: radiology read reviewed
*Pulse Oximetry
Patient hypoxic: no
*EKG
Interpreted by ED Provider?: Yes
Interpretation: abnormal
Comparison EKG: no comparison EKG present
Heart Rate: 78
Rate: normal
Rhythm: sinus
Ischemia: non-specific ST changes
*[facility] [employer] Department Supervisor Interpretation
Rate: normal
Interpretation: normal
Heart Rate: 78
*Critical Care Note
Total Time (30-74mins, 75-104mins- exclusive of procedures): 30
Data Reviewed
Review of Other/Old Records Reveals: Labs and Radiology Studies
Source: patient, spouse and physician
Prescriptions/Medications Considered But Not Given:
tnk
Further Testing Considered But Not Given:
mri
Update Note
Update Note:
Update stroke alert called by nursing, discussed with neurology their belief is that this was a seizure which I think is a reasonable conclusion, patient was also noncompliant with his Keppra last evening, will give a load of Keppra, then resume his
prior dose, he sees Dr. Diaz/ Fabi bai, scheduled for an MRI in the coming weeks, patient tells me he is driving I encouraged him not to drive
ED Attending Note
-
Portions of this chart may have been created with voice recognition software.� Occasional wrong word or��sound alike� substitutions may have occurred due to the inherent limitations of voice recognition software.
Discharge Plan
Departure
Patient Disposition: Home (Routine Discharge)
Date of Disposition: 06/21/24
Time of Disposition: 17:14
Patient with high blood pressure during this ER visit?: No
Condition: Good
Discharge Problem:
Seizure
Instructions: Seizures in adults - ED discharge instructions
Prescriptions:
No Action
omeprazole 40 MG capsule,delayed release(DR/EC)
40 mg PO BID
duloxetine 60 MG capsule,delayed release(DR/EC)
60 mg PO QPM
amlodipine 5 MG tablet
5 mg PO DAILY
atorvastatin 20 mg Tablet
20 mg PO QPM
metformin 500 mg tablet
1,000 mg PO BID
Centrum Men 8 mg iron- 200 mcg-600 mcg Tablet
1 tab PO DAILY
aspirin 81 mg Tablet,Chewable
81 mg PO DAILY Qty: 30 0RF
metoprolol succinate 25 mg Tablet Extended Release 24 Hr
25 mg PO QPM
Jardiance 25 mg Tablet
25 mg PO DAILY
levetiracetam 500 mg tablet
750 mg PO BID
Referrals:
Sachi Moses MD [Family Provider] - Next open appointment
Fabi Bai CRNP [Specified Professional Personl] - Next open appointment
Activity Restrictions/Additional Instructions:
Take your Keppra as prescribed, do not miss any doses
Do not drive until you are cleared by your neurologist, obtain MRI as scheduled follow-up with your neurosurgeon as scheduled
Interventions
Interventions:
*Risk Screen - Suicide Last Done: 06/21/24 15:52
*General Assessment Last Done: 06/21/24 15:52
*ED COVID-19 Vaccine History Last Done: 06/21/24 15:52
ED- Pulmonary Assessment Last Done: 06/21/24 16:10
ED- Neurological Assessment Last Done: 06/21/24 16:10
ED- Cardiac Assessment Last Done: 06/21/24 16:10
ED Swallowing Screen Last Done: 06/21/24 17:07
Discharge Date and Time
Print Language: KAZAKH
[2024-06-21 17:00] VITALS: BP 125/81
[2024-06-21 17:01] LABS: % Eosinophils 2.2 % (0-6); % Immature Granulocytes 0.3 % (0-0.5); % Lymphocytes 21.7 % (20.5-51.1); % Monocytes 5.6 % (1.7-9.3); % Neutrophils 69.2 % (42.2-75.2); Absolute Basophils 0.1 10^3/uL (0-0.2); Absolute Eosinophils 0.2 10^3/uL (0-0.7); Absolute Monocytes 0.5 10^3/uL (0.1-0.6); Absolute Neutrophils 6.3 10^3/uL (1.4-6.5); Hematocrit 44.6 % (39.0-52.0); Hemoglobin 13.9 g/dL (13.0-18.0); Mean Corp Hgb Conc. 31.2 g/dL (33.0-37.0); Mean Corpuscular Volume 80.2 fL (80.0-94.0); Mean Platelet Volume 10.3 fL (7.4-10.4); Nucleated Red Blood Cells % 0 % (-); Platelet Count 246 10^3/uL (130-400); Red Blood Cell Count 5.56 10^6/uL (4.70-6.10); Red Cell Dist. Width 15.6 % (11.5-14.5)
[2024-06-21 17:07] LABS: ALT (SGPT) 19 U/L (0-50); AST (SGOT) 20 U/L (17-59); Albumin 4.7 g/dl (3.5-5.0); Alkaline Phosphatase 55 U/L (38-126); Blood Urea Nitrogen 29 mg/dl (9-20); Calcium 10.2 mg/dl (8.4-10.2); Carbon Dioxide 18 mmol/L (22-30); Chloride 102 mmol/L (98-107); Estimated Creatinine Clearance 79 ml/min; Glucose 136 mg/dl (70-99); Potassium 3.9 mmol/L (3.5-5.1); Sodium 139 mmol/L (135-145); Total Bilirubin 0.6 mg/dl (0.2-1.3); Total Protein 7.1 g/dl (6.3-8.2); eGFR > 60.00
[2024-06-21 17:08] VITALS: BP 110/83
== END 2024-06-21 18:01 | disposition home or self-care (01) ==
LOC: EMR 15:51
PROVIDERS: EMERGENCY PHYSICIAN Emergency Medicine; FAMILY PHYSICIAN Internal Medicine; OTHER PHYSICIAN Psychiatry & Neurology Clinical Neurophysiology
DX: G40.909 Epilepsy, unspecified, not intractable, without status epilepticus (principal); R29.810 Facial weakness; R47.01 Aphasia; C79.31 Secondary malignant neoplasm of brain; Z91.148 Patient's other noncompliance with medication regimen for other reason; E78.00 Pure hypercholesterolemia, unspecified; K21.9 Gastro-esophageal reflux disease without esophagitis; E11.40 Type 2 diabetes mellitus with diabetic neuropathy, unspecified; I10 Essential (primary) hypertension; J44.9 Chronic obstructive pulmonary disease, unspecified; Z86.0101 Personal history of adenomatous and serrated colon polyps; Z85.01 Personal history of malignant neoplasm of esophagus; Z86.0109 Personal history of other colon polyps; Z87.891 Personal history of nicotine dependence; Z79.82 Long term (current) use of aspirin; Z79.899 Other long term (current) drug therapy; Z90.49 Acquired absence of other specified parts of digestive tract; Z91.041 Radiographic dye allergy status
CPT/HCPCS: 99291; 96374; 70450; 80053; 82962; 85025; 93005

== ENCOUNTER 2024-10-04 11:41 | Outpatient (RCR) | payer MEDICARE, OTHER, SELFPAY | END 2024-10-04 23:59 | disposition home or self-care (01) | LOC: RST 11:41 | PROVIDERS: ATTENDING PHYSICIAN Nurse Practitioner Adult Health; FAMILY PHYSICIAN Internal Medicine | DX: G40.309 Generalized idiopathic epilepsy and epileptic syndromes, not intractable, without status epilepticus (principal); R41.3 Other amnesia; R41.840 Attention and concentration deficit; R41.841 Cognitive communication deficit; R41.89 Other symptoms and signs involving cognitive functions and awareness; R41.844 Frontal lobe and executive function deficit; C79.31 Secondary malignant neoplasm of brain; R47.1 Dysarthria and anarthria; R47.02 Dysphasia; Z85.01 Personal history of malignant neoplasm of esophagus | CPT/HCPCS: 92523; 96125; 97129; 97130 ==

== ENCOUNTER → 2024-10-10 08:36 | Outpatient (REF) | payer MEDICARE, OTHER, SELFPAY ==
[2024-10-10 12:59] LABS: % Basophils 1.1 % (0-2); % Eosinophils 3.4 % (0-6); % Immature Granulocytes 0.2 % (0-0.5); % Monocytes 7.3 % (1.7-9.3); Absolute Basophils 0.1 10^3/uL (0-0.2); Absolute Eosinophils 0.2 10^3/uL (0-0.7); Absolute Lymphocytes 1.3 10^3/uL (1.2-3.4); Absolute Monocytes 0.4 10^3/uL (0.1-0.6); Absolute Neutrophils 3.4 10^3/uL (1.4-6.5); Hematocrit 41.9 % (39.0-52.0); Hemoglobin 12.9 g/dL (13.0-18.0); Mean Corp Hgb Conc. 30.8 g/dL (33.0-37.0); Mean Corpuscular Hgb 24.8 pg (27.0-31.0); Mean Corpuscular Volume 80.4 fL (80.0-94.0); Mean Platelet Volume 10.8 fL (7.4-10.4); Nucleated Red Blood Cells % 0 % (-); Platelet Count 224 10^3/uL (130-400); Red Blood Cell Count 5.21 10^6/uL (4.70-6.10); Red Cell Dist. Width 16.7 % (11.5-14.5); White Blood Cell Count 5.4 10^3/uL (4.8-10.8)
[2024-10-10 13:37] LABS: ALT (SGPT) 16 U/L (0-50); AST (SGOT) 17 U/L (17-59); Albumin 4.2 g/dl (3.5-5.0); Alkaline Phosphatase 43 U/L (38-126); Blood Urea Nitrogen 21 mg/dl (9-20); Calcium 9.6 mg/dl (8.4-10.2); Carbon Dioxide 24 mmol/L (22-30); Chloride 110 mmol/L (98-107); Glucose 129 mg/dl (70-99); HDL Cholesterol 42 mg/dl; LDL Cholesterol, Calculated 72 mg/dl; Potassium 4.4 mmol/L (3.5-5.1); Sodium 144 mmol/L (135-145); Total Bilirubin 0.5 mg/dl (0.2-1.3); Total Cholesterol 141 mg/dl (50-199); Total Protein 6.6 g/dl (6.3-8.2); Triglyceride 138 mg/dl (10-149); Very Low Density Lipoprotein 27 mg/dl (0-30); eGFR > 60.00
[2024-10-10 13:40] LABS: Microalbumin, Random Urine 0.9 mg/dl (0.6-1.7); Microalbumin/creatinine Ratio 7.7 mg/g
[2024-10-10 14:30] LABS: PSA, Total - Screen 1.49 ng/ml (0.0-4.0)
== END ==
LOC: HWLAB 08:36
PROVIDERS: ATTENDING PHYSICIAN Internal Medicine
DX: E78.5 Hyperlipidemia, unspecified (principal); E11.9 Type 2 diabetes mellitus without complications; K21.9 Gastro-esophageal reflux disease without esophagitis; Z12.5 Encounter for screening for malignant neoplasm of prostate; C15.9 Malignant neoplasm of esophagus, unspecified
CPT/HCPCS: 36415; 80053; 80061; 82043; 82570; 83036; 85025; G0103

== ENCOUNTER 2024-11-01 12:59 | Outpatient (RCR) | payer MEDICARE, OTHER, SELFPAY | END 2024-11-01 23:59 | disposition home or self-care (01) | LOC: ROT 12:59 | PROVIDERS: ATTENDING PHYSICIAN Nurse Practitioner Adult Health; FAMILY PHYSICIAN Internal Medicine | DX: G40.309 Generalized idiopathic epilepsy and epileptic syndromes, not intractable, without status epilepticus (principal); R41.3 Other amnesia; R41.840 Attention and concentration deficit; R41.841 Cognitive communication deficit; R41.89 Other symptoms and signs involving cognitive functions and awareness; R41.844 Frontal lobe and executive function deficit; C79.31 Secondary malignant neoplasm of brain; R47.1 Dysarthria and anarthria; R47.02 Dysphasia; Z85.01 Personal history of malignant neoplasm of esophagus | CPT/HCPCS: 92507; 97129; 97130; 97167; 97530; 97535 ==

== ENCOUNTER 2024-11-01 13:36 | Emergency (ER) | payer MEDICARE, OTHER, SELFPAY ==
[2024-11-01 13:41] VITALS: BP 92/79
--- NOTE | 2024-11-01 14:22 | ED.GENMED ---
History of Present Illness
General
Chief Complaint: Weakness
Source: patient
Exam Limitations: none
Time Seen by Provider: 11/01/24 14:09
History of Present Illness
History of Present Illness:
69-year-old male presents from outpatient therapy after feeling lightheaded and weak. He was doing an activity at occupational therapy and developed sweatiness weakness. There is no chest pain. There was no significant shortness of breath. His
states that he turned pale. Upon my assessment he states he is feeling improved. He has no complaints offer other than some residual symptoms.
Past History
Past History
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 Tubular adenoma of the colon), GERD, HTN, Hypercholesterolemia, NIDDM and Other (Esophageal cancer metastasis to the brain, Colonic polyposis, neuropathic pain)
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
(Esophagectomy,Gastrostomy tube)
Social History
Tobacco: Non-smoker
Alcohol: None
Drug: None
Personal:
Living: with family
Employment: Retired
Family History
Family History: Other (Reviewed and Noncontributory)
Phy Exam
Physical Exam
Physical Exam:
General: Well-appearing male no acute respiratory distress HEENT normocephalic atraumatic
Heart: Regular rate and rhythm
Lungs: Clear no wheeze
Extremities: No cyanosis or edema
Neurologic exam: Alert and oriented no facial asymmetry no drift conversing appropriately
Course
Orders/Labs/Results
Orders:
Orders
11/01/24 13:38
Electrocardiogram (*1) Urgent
Reason for Study: Chest Pain
EKG- Treatment ONCE
11/01/24 14:20
Orthostatic VS- Treatment ONCE
11/01/24 14:23
Complete Blood Count/With Diff Urgent
Comprehensive Metabolic Panel Urgent
Abnormal Lab Results
11/01/24
14:23
Hgb 12.7 L g/dL
(13.0-18.0)
MCH 25.2 L pg
(27.0-31.0)
MCHC 31.1 L g/dL
(33.0-37.0)
RDW 16.8 H %
(11.5-14.5)
Lymphocytes % 18.0 L %
(20.5-51.1)
Chloride 112 H mmol/L
(98-107)
Carbon Dioxide 21 L mmol/L
(22-30)
BUN 24 H mg/dl
(9-20)
Glucose 123 H mg/dl
(70-99)
Alkaline Phosphatase 37 L U/L
(38-126)
11/01/24 14:23
11/01/24 14:23
Vital Signs
Initial and Last Documented VS:
Initial Vital Signs
Temp Pulse Resp BP Pulse Ox
98.0 F 74 18 92/79 98
11/01/24 13:41 11/01/24 13:41 11/01/24 13:41 11/01/24 13:41 11/01/24 13:41
Last Documented Vital Signs
Temp Pulse Resp BP Pulse Ox
98.0 F 87 18 118/75 98
11/01/24 13:41 11/01/24 15:24 11/01/24 13:41 11/01/24 15:24 11/01/24 14:25
MDM/Problems Addressed
Differential Diagnosis Includes:
Episode of weakness and diaphoresis. He states he felt like he was going to pass out but feels better. Question arrhythmia versus vasovagal episode versus anemia
EKG shows sinus rhythm with PVCs. Patient currently on personnel monitor. Will check labs and orthostatics.
*Pulse Oximetry
SaO2: 98
Oxygen Mode of Delivery: Room air
Patient hypoxic: no
*Critical Care Note
Total Time (30-74mins, 75-104mins- exclusive of procedures): Not Applicable
Update Note
Update Note:
Orthostatic vital signs reviewed. Patient was asymptomatic upon standing however his blood pressure did drop slightly heart rate went up some. He has been hydrating by mouth since that visit. I stood him up and I witnessed him walking to the
bathroom without any difficulty. There is no lightheadedness. He feels much better at this point. I suspect vasovagal episode recommended continued hydration. No indication for admission. Stable for discharge
ED Attending Note
-
Portions of this chart may have been created with voice recognition software.� Occasional wrong word or��sound alike� substitutions may have occurred due to the inherent limitations of voice recognition software.
Discharge Plan
Departure
Patient Disposition: Home (Routine Discharge)
Date of Disposition: 11/01/24
Time of Disposition: 15:55
Patient with high blood pressure during this ER visit?: No
Discharge Problem:
Weakness
Instructions: Generalized Weakness (DC)
Prescriptions:
No Action
omeprazole 40 MG capsule,delayed release(DR/EC)
40 mg PO BID
duloxetine 60 MG capsule,delayed release(DR/EC)
60 mg PO QPM
amlodipine 5 MG tablet
5 mg PO DAILY
atorvastatin 20 mg Tablet
20 mg PO QPM
metformin 500 mg tablet
1,000 mg PO BID
Centrum Men 8 mg iron- 200 mcg-600 mcg Tablet
1 tab PO DAILY
aspirin 81 mg Tablet,Chewable
81 mg PO DAILY Qty: 30 0RF
metoprolol succinate 25 mg Tablet Extended Release 24 Hr
25 mg PO QPM
Jardiance 25 mg Tablet
25 mg PO DAILY
levetiracetam 500 mg tablet
750 mg PO BID
Referrals:
Sachi Moses MD [Family Provider, Internal Medicine]
Activity Restrictions/Additional Instructions:
Return here for worsening symptoms otherwise follow-up with your doctor. Stay hydrated
Interventions
Interventions:
*Risk Screen - Suicide Last Done: 11/01/24 13:41
*General Assessment Last Done: 11/01/24 13:41
*Neglect/Abuse Screening Last Done: 11/01/24 13:41
*ED- Fall Risk Assessment Last Done: 11/01/24 13:41
*ED COVID-19 Vaccine History Last Done: 11/01/24 13:41
ED- Cardiac Assessment Last Done: 11/01/24 15:23
ED- Neurological Assessment Last Done: 11/01/24 15:23
ED- Pulmonary Assessment Last Done: 11/01/24 15:23
Discharge Date and Time
Print Language: TANZANIAN
[2024-11-01 14:34] LABS: % Eosinophils 2.2 % (0-6); % Immature Granulocytes 0.3 % (0-0.5); % Monocytes 7.6 % (1.7-9.3); % Neutrophils 70.9 % (42.2-75.2); Absolute Basophils 0.1 10^3/uL (0-0.2); Absolute Eosinophils 0.2 10^3/uL (0-0.7); Absolute Lymphocytes 1.3 10^3/uL (1.2-3.4); Absolute Monocytes 0.5 10^3/uL (0.1-0.6); Absolute Neutrophils 5.1 10^3/uL (1.4-6.5); Hematocrit 40.9 % (39.0-52.0); Hemoglobin 12.7 g/dL (13.0-18.0); Mean Corp Hgb Conc. 31.1 g/dL (33.0-37.0); Mean Corpuscular Hgb 25.2 pg (27.0-31.0); Mean Corpuscular Volume 81.3 fL (80.0-94.0); Mean Platelet Volume 10.1 fL (7.4-10.4); Nucleated Red Blood Cells % 0 % (-); Platelet Count 241 10^3/uL (130-400); Red Blood Cell Count 5.03 10^6/uL (4.70-6.10); Red Cell Dist. Width 16.8 % (11.5-14.5); White Blood Cell Count 7.1 10^3/uL (4.8-10.8)
[2024-11-01 15:01] LABS: ALT (SGPT) 18 U/L (0-50); AST (SGOT) 19 U/L (17-59); Albumin 4.2 g/dl (3.5-5.0); Alkaline Phosphatase 37 U/L (38-126); Blood Urea Nitrogen 24 mg/dl (9-20); Calcium 10.1 mg/dl (8.4-10.2); Carbon Dioxide 21 mmol/L (22-30); Chloride 112 mmol/L (98-107); Glucose 123 mg/dl (70-99); Potassium 4.4 mmol/L (3.5-5.1); Sodium 143 mmol/L (135-145); Total Bilirubin 0.4 mg/dl (0.2-1.3); Total Protein 6.7 g/dl (6.3-8.2); eGFR > 60.00
[2024-11-01 15:24] VITALS: BP 118/75
[2024-11-01 15:29] VITALS: BP 101/64; BP 113/68; BP 118/75; PULSE 102; PULSE 89; PULSE 90
== END 2024-11-01 16:45 | disposition home or self-care (01) ==
LOC: EMR 13:36
PROVIDERS: Physician Assistant; EMERGENCY PHYSICIAN Emergency Medicine; FAMILY PHYSICIAN Internal Medicine
DX: R53.1 Weakness (principal); Z85.01 Personal history of malignant neoplasm of esophagus; C79.31 Secondary malignant neoplasm of brain; E11.9 Type 2 diabetes mellitus without complications; E78.00 Pure hypercholesterolemia, unspecified; I10 Essential (primary) hypertension; Z86.0109 Personal history of other colon polyps; Z90.49 Acquired absence of other specified parts of digestive tract; I49.3 Ventricular premature depolarization
CPT/HCPCS: 99284; 80053; 85025; 93005

== ENCOUNTER 2024-12-06 10:22 | Outpatient (RCR) | payer MEDICARE, OTHER, SELFPAY | END 2024-12-06 23:59 | disposition home or self-care (01) | LOC: ROT 10:22 | PROVIDERS: ATTENDING PHYSICIAN Nurse Practitioner Adult Health; FAMILY PHYSICIAN Internal Medicine | DX: G40.309 Generalized idiopathic epilepsy and epileptic syndromes, not intractable, without status epilepticus (principal); R41.3 Other amnesia; R41.840 Attention and concentration deficit; R41.841 Cognitive communication deficit; R41.89 Other symptoms and signs involving cognitive functions and awareness; R41.844 Frontal lobe and executive function deficit; C79.31 Secondary malignant neoplasm of brain; R47.1 Dysarthria and anarthria; R47.02 Dysphasia; Z85.01 Personal history of malignant neoplasm of esophagus | CPT/HCPCS: 97129; 97130; 97530; 97535; 97537 ==

== ENCOUNTER 2025-01-03 09:27 | Outpatient (RCR) | payer MEDICARE, OTHER, SELFPAY | END 2025-01-03 23:59 | disposition home or self-care (01) | LOC: ROT 09:27 | PROVIDERS: ATTENDING PHYSICIAN Nurse Practitioner Adult Health; FAMILY PHYSICIAN Internal Medicine | DX: G40.309 Generalized idiopathic epilepsy and epileptic syndromes, not intractable, without status epilepticus (principal); R41.3 Other amnesia; R41.840 Attention and concentration deficit; R41.841 Cognitive communication deficit; R41.89 Other symptoms and signs involving cognitive functions and awareness; R41.844 Frontal lobe and executive function deficit; C79.31 Secondary malignant neoplasm of brain; R47.1 Dysarthria and anarthria; R47.02 Dysphasia; Z73.6 Limitation of activities due to disability; Z85.01 Personal history of malignant neoplasm of esophagus | CPT/HCPCS: 97129; 97130; 97530; 97535; 97537; 97550 ==

== ENCOUNTER → 2025-01-15 09:01 | Outpatient (REF) | payer MEDICARE, OTHER, SELFPAY ==
[2025-01-15 12:38] LABS: Hematocrit 42.1 % (39.0-52.0); Hemoglobin 13.0 g/dL (13.0-18.0); Mean Corp Hgb Conc. 30.9 g/dL (33.0-37.0); Mean Corpuscular Volume 79.9 fL (80.0-94.0); Nucleated Red Blood Cells % 0 % (-); Platelet Count 252 10^3/uL (130-400); Red Cell Dist. Width 15.8 % (11.5-14.5)
[2025-01-15 14:51] LABS: ALT (SGPT) 20 U/L (0-50); AST (SGOT) 18 U/L (17-59); Albumin 4.4 g/dl (3.5-5.0); Alkaline Phosphatase 46 U/L (38-126); Blood Urea Nitrogen 20 mg/dl (9-20); Calcium 10.3 mg/dl (8.4-10.2); Carbon Dioxide 26 mmol/L (22-30); Chloride 106 mmol/L (98-107); Glucose 131 mg/dl (70-99); Potassium 4.6 mmol/L (3.5-5.1); Sodium 140 mmol/L (135-145); Total Protein 7.0 g/dl (6.3-8.2); eGFR > 60.00
[2025-01-15 15:28] LABS: CEA 1.06 ng/ml
== END ==
LOC: HWLAB 09:01
PROVIDERS: ATTENDING PHYSICIAN Internal Medicine Hematology & Oncology; FAMILY PHYSICIAN Internal Medicine
DX: C15.5 Malignant neoplasm of lower third of esophagus (principal); C79.31 Secondary malignant neoplasm of brain
CPT/HCPCS: 36415; 80053; 82378; 85025

== ENCOUNTER → 2025-01-21 08:46 | Outpatient (REF) | payer MEDICARE, OTHER, SELFPAY | LOC: RAD 08:46 | PROVIDERS: ATTENDING PHYSICIAN Internal Medicine Hematology & Oncology; FAMILY PHYSICIAN Internal Medicine | DX: C15.9 Malignant neoplasm of esophagus, unspecified (principal); C79.31 Secondary malignant neoplasm of brain | CPT/HCPCS: 71260; 74177; Q9967 ==

== ENCOUNTER 2025-02-04 11:30 | Outpatient (RCR) | payer MEDICARE, OTHER, SELFPAY | END 2025-02-04 14:38 | disposition home or self-care (01) | LOC: ROT 11:30 | PROVIDERS: ATTENDING PHYSICIAN Nurse Practitioner Adult Health; FAMILY PHYSICIAN Internal Medicine | DX: G40.309 Generalized idiopathic epilepsy and epileptic syndromes, not intractable, without status epilepticus (principal); R41.3 Other amnesia; R41.840 Attention and concentration deficit; R41.841 Cognitive communication deficit; R41.89 Other symptoms and signs involving cognitive functions and awareness; R41.844 Frontal lobe and executive function deficit; C79.31 Secondary malignant neoplasm of brain; R47.1 Dysarthria and anarthria; R47.02 Dysphasia; Z73.6 Limitation of activities due to disability; Z85.01 Personal history of malignant neoplasm of esophagus | CPT/HCPCS: 97129; 97130; 97530 ==